=== PATIENT | female | born 1960 | race Caucasian/White ===

== ENCOUNTER 2022-11-15 13:27 | Emergency (ER) | payer SELFPAY ==
[~2022-11-15] VITALS: Ht 157.5 cm; Wt 97.5 kg
[~2022-11-15 13:27] MED LIST: ALBIPROI INH; ASCO500 PO; ASPI81EC PO; ATOR10; BUSP10; CLOB.05TC TP; CLON1; CYCL10 PO; ENAL10 PO; ENAL2.5 PO; FURO20 PO; HYDACE5 PO; LISI5; METF500 PO; MULTIVITAMIN PO; PIOG15 PO; POTCHL10ER PO; PROM25 PO; Prednisone50 MG PO; TIOT18 INH; VENL25; VITB100 PO; Zithromax250 MG PO; [UNRECOGNIZED DRUG - OTHER] PO; [UNRECOGNIZED DRUG - OTHER] TOP
[2022-11-15 14:26] LABS: Hematocrit 42.6 % (33.0-51.0); Hemoglobin 14.5 g/dL (11.5-16.0); Mean Corpuscular HGB 29.4 pg (26.0-34.0); Mean Corpuscular Volume 86 fL (80-100); Mean Platelet Volume 11.9 fL (9.1-12.4); Platelet Count 220 K/mm3 (150-400); RDW Coefficient Variation 14.1 % (11.7-14.2); RDW Standard Deviation 44.9 fL (35.1-46.3); Red Blood Cell Count 4.94 M/mm3 (3.80-5.20); White Blood Cell Count 17.21 K/mm3 (4.00-11.30)
[2022-11-15 14:29] LABS: Albumin, Blood 2.1 g/dL (3.4-5.0); Albumin/Globulin Ratio 0.4 (0.8-1.8); Bilirubin, Total 1.1 mg/dL (0.1-1.0); Bun/Creatinine Ratio 25.5 (12.0-20.0); Calcium, Blood 9.1 mg/dL (8.5-10.1); Creatinine, Blood 1.02 mg/dL (0.40-1.00); Globulin, Blood 4.7 g/dL (2.2-4.0); Potassium, Blood 3.4 mmol/L (3.5-5.5); Total Protein, Blood 6.8 g/dL (6.4-8.2)
[2022-11-15 15:02] LABS: BAND PERCENT MAN 37 % (0-8); BASOPHILS PERCENT MAN 0 % (0-2); EOSINOPHILS PERCENT MAN 0 % (0-6); LYMPHOCYTES ABSOLUTE MAN 0.68 K/mm3 (0.84-5.20); LYMPHOCYTES PERCENT MAN 4 % (21-46); METAMYELOCYTE ABSOLUTE MAN 0.51 K/mm3 (0.00-0.00); METAMYELOCYTE PERCENT MAN 3 % (0-0); MONOCYTES ABSOLUTE MAN 0.34 K/mm3 (0.16-1.47); MONOCYTES PERCENT MAN 2 % (4-13); NEUTROPHILS ABSOLUTE MAN 15.66 K/mm3 (1.96-9.15); SEG NEUTROPHILS PERCENT MAN 54 % (41-73); TOTAL CELLS COUNTED 100
[2022-11-15 16:37] LABS: Base Excess Venous -2.1 mmol/L; Bicarbonate Venous 23.1 mmol/L (24.0-30.0); PCO2 Venous 35.5 mmHg (38-42); pH Blood Venous 7.41 (7.34-7.37)
[2022-11-15 18:09] LABS: Source, Urine Clean Catch
[2022-11-15 18:12] LABS: Appearance, Urine Clear (Clear); Bilirubin, Urine Neg (Neg); Blood, Urine 4+ (Neg); Color, Urine Amber (P-Yellow); Glucose Qualitative, Urine 4+ (Neg); Ketones, Urine Neg (Neg); Leukocyte Esterase, Urine 3+ (Neg); Nitrite, Urine Neg (Neg); Protein, Urine 2+ (Neg); Urobilinogen, Urine 2+ (Normal)
[2022-11-15 18:19] LABS: White Blood Cells, Urine 25-50 /hpf (0-5)
[2022-11-15 18:20] LABS: Bacteria Many /hpf; Renal Epithelial Rare /hpf (0-Rare); Squamous Epithelial Cells Mod /hpf (Few)
[2022-11-15 20:12] LABS: Source, Urine Straight Cath
[2022-11-15 20:22] LABS: Bilirubin, Urine Neg (Neg); Blood, Urine 4+ (Neg); Glucose Qualitative, Urine 3+ (Neg); Ketones, Urine Neg (Neg); Leukocyte Esterase, Urine 1+ (Neg); Nitrite, Urine Neg (Neg); Protein, Urine 2+ (Neg); Urobilinogen, Urine 1+ (Normal)
[2022-11-15 20:42] LABS: Appearance, Urine Clear (Clear); Bacteria Few /hpf; Color, Urine Yellow (P-Yellow); Red Blood Cells, Urine 0-2 /hpf (0-2); Squamous Epithelial Cells Few /hpf (Few)
[2022-11-15 23:30] VITALS: BP 141/50
== END 2022-11-16 00:17 | disposition short-term general hospital (02) ==
LOC: ER 13:27
PROVIDERS: Physician Assistant; Student in an Organized Health Care Education/Training Program
DX: A41.9 Sepsis, unspecified organism (principal); N13.2 Hydronephrosis with renal and ureteral calculous obstruction; F17.200 Nicotine dependence, unspecified, uncomplicated; Z88.5 Allergy status to narcotic agent; Z79.899 Other long term (current) drug therapy; Z79.84 Long term (current) use of oral hypoglycemic drugs
CPT/HCPCS: 51701; 71046; 74177; 76770; 80053; 81001; 82010; 82803; 83605; 83690; 85025; 87077; 87086; 87186; 93005; 93010; 96361-59; 96365-59; 96375-59; 96376-59; 99285-25; A9270; J0696; J1885; J2405; J7030; Q9967

== ENCOUNTER → 2025-06-13 | Outpatient (CLI) | payer SELFPAY | END | disposition home or self-care (01) | LOC: LAB 12:02 → LAB SHORT 12:02 | DX: N39.0 Urinary tract infection, site not specified (principal) | CPT/HCPCS: 87077; 87086; 87186 ==